=== PATIENT | female | born 1950 | race Caucasian/White ===

== ENCOUNTER 2017-02-21 11:23 | Emergency (ER) | payer MEDICARE ==
[2017-02-21 11:29] VITALS: BP 145/68
[2017-02-21] MEDS ORDERED: IPRATROPIUM/ALBUTEROL 0.5-2.5 MG/3 ML AMPUL NEB ONE (12:21)
[2017-02-21] MEDS ORDERED: GUAIFENESIN/D-METHORPHAN (200-20 MG) SYRUP 10 ML PO ONE (12:21)
--- NOTE | 2017-02-21 12:22 | ER Document Report ---
ED Flu Like - General Chief Complaint: Flu Symptoms Stated Complaint: DIFFICULTY BREATHING,COUGH Time Seen by Provider: 02/21/17 12:06 Mode of Arrival: Ambulatory Information source: Patient Notes: Patient is a 67-year-old female who presents to the ER today for flu That was diagnosed 4 days ago. Patient states that her shortness of breath and cough just seems to be getting worse. She went to the urgent care who sent her here for chest x-ray and because she got lightheaded when they Made her breathe deeply to listen to her lungs. She denies any nausea, vomiting or diarrhea. She admits to body aches and chills but denies true fever that she is noticed. TRAVEL OUTSIDE OF THE [place] IN LAST 30 DAYS: No - Related Data Allergies/Adverse Reactions: No Known Allergies Allergy (Verified 02/21/17 11:23) Past Medical History - General Information source: Patient - Social History Smoking Status: Never Smoker Chew tobacco use (# tins/day): No Frequency of alcohol use: None Drug Abuse: None Family History: Reviewed & Not Pertinent Patient has suicidal ideation: No Patient has homicidal ideation: No Renal/ Medical History: Denies: Hx Peritoneal Dialysis Review of Systems - Review of Systems Constitutional: See HPI EENT: See HPI Cardiovascular: No symptoms reported Respiratory: See HPI Gastrointestinal: No symptoms reported Genitourinary: No symptoms reported Female Genitourinary: No symptoms reported Musculoskeletal: No symptoms reported Skin: No symptoms reported Hematologic/Lymphatic: No symptoms reported Neurological/Psychological: No symptoms reported Physical Exam - Vital signs Vitals: Temp Pulse Resp BP Pulse Ox 98.5 F 86 20 145/68 H 94 02/21/17 11:28 02/21/17 11:28 02/21/17 11:28 02/21/17 11:28 02/21/17 11:28 - Notes Notes: PHYSICAL EXAMINATION: GENERAL: Mildly ill-appearing, but in no acute distress. HEAD: Atraumatic, normocephalic. EYES: Pupils equal round and reactive to light, extraocular movements intact, sclera anicteric, conjunctiva are normal. ENT: ear canals without erythema or foreign body, TMs pearly purcell with good bony landmarks, nares patent, oropharynx erythematous without exudates. Moist mucous membranes. NECK: Normal range of motion, supple without lymphadenopathy LUNGS: cough, mild expiratory wheezes, no rales or rhonchi. HEART: Regular rate and rhythm without murmurs ABDOMEN: Soft, no tenderness. No guarding, no rebound BACK: no vertebral tenderness, normal ROM GI/: no CVA tenderness EXTREMITIES: Normal range of motion, no pitting edema. No cyanosis. NEUROLOGICAL: Cranial nerves grossly intact. Normal sensory/motor exams. PSYCH: Normal mood, normal affect. SKIN: Warm, Dry, normal turgor, no rashes or lesions noted Course - Re-evaluation Re-evalutation: 02/21/17 14:22 chest x-ray negative for any acute pathology such as pneumonia, etc. today. Patient will be Given inhaler as she does feel better after DuoNeb here in the emergency department. Patient's lungs are clear after one breathing treatment here. At this point I did advise patient that the flu can last 10-14 days and that it is viral, but there is no sign of pneumonia today. I will send her home with some good cough medication and an inhaler from the emergency department. - Vital Signs Vital signs: Temp Pulse Resp BP Pulse Ox 98.5 F 86 20 145/68 H 94 02/21/17 11:28 02/21/17 11:28 02/21/17 11:28 02/21/17 11:28 02/21/17 11:28 Discharge - Discharge Clinical Impression: Flu, Shortness of breath Condition: Stable Disposition: HOME, SELF-CARE Instructions: Influenza ([facility]) [id number] Additional Instructions: The flu is viral and usually resolves after 10-14 days. Return immediately for any new or worsening symptoms. Follow up with primary care provider, call tomorrow to make followup appointment. Prescriptions: Hydrocodone Bit/Homatropine [Hycodan Syrup 5-1.5 mg/5 ml Ud Cup] 5 ml PO Q4HP PRN #120 ml PRN Reason:
--- NOTE | 2017-02-21 13:22 | RADIOLOGY REPORT (SQ) ---
EXAM DESCRIPTION: CHEST PA/LAT COMPLETED DATE/TIME: 02/21/2017 1:11 pm REASON FOR STUDY: sob COMPARISON: None. EXAM PARAMETERS: NUMBER OF VIEWS: two views TECHNIQUE: Digital Frontal and Lateral radiographic views of the chest acquired. RADIATION DOSE: NA LIMITATIONS: none FINDINGS: LUNGS AND PLEURA: No opacities, masses or pneumothorax. No pleural effusion. MEDIASTINUM AND HILAR STRUCTURES: No masses or contour abnormalities. HEART AND VASCULAR STRUCTURES: Heart normal size. No evidence for failure. BONES: No acute findings. HARDWARE: None in the chest. OTHER: No other significant finding. IMPRESSION: NO SIGNIFICANT RADIOGRAPHIC FINDING IN THE CHEST. TECHNICAL DOCUMENTATION: JOB ID: [id number] [employer]- All Rights Reserved
[2017-02-21] MEDS ORDERED: ALBUTEROL SULFATE HFA (90 MCG/PUFF) 8 GM MDI (1 MDI/ER DISP) IH PRN (13:30)
== END 2017-02-21 13:46 | disposition home or self-care (01) ==
LOC: ER 11:23
DX: J11.1 Influenza due to unidentified influenza virus with other respiratory manifestations (principal); R06.02 Shortness of breath; R05 Cough; R68.83 Chills (without fever)
CPT/HCPCS: 94640; 99283; 71020; A9270 ×2; J3490; J7620

== ENCOUNTER → 2020-02-13 | Outpatient (CLI) | payer MEDICARE ==
--- NOTE | 2020-02-13 16:02 | RADIOLOGY REPORT (SQ) ---
EXAM DESCRIPTION: FOOT RIGHT COMPLETE IMAGES COMPLETED DATE/TIME: 02/13/2020 3:36 pm REASON FOR STUDY: (M84.374D)STRESS FRACTURE, RIGHT FOOT, SUBS FOR FX W ROUTN HEAL M84.374D STRESS F RACTURE, RIGHT FOOT, SUBS FOR FX W ROUTN HE Q72.819 CONGENITAL SHORTENING OF UNSPECIFIED LOWER LIMB COMPARISON: None. NUMBER OF VIEWS: Two views. TECHNIQUE: AP and lateral weight-bearing views of the right foot were obtained. LIMITATIONS: None. FINDINGS: MINERALIZATION: Normal. BONES: No acute fracture or dislocation. 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 The normal tars ometatarsal alignment is preserved. There are enthesophytes at the calcaneal insertion of the planta r fashion Achilles tendon. SOFT TISSUES: No soft tissue swelling or radiopaque foreign body. OTHER: No other abnormality. IMPRESSION: 1. 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 2. Enthesophytes at the calcaneal insertion of the plantar fashion Achilles tendon. TECHNICAL DOCUMENTATION: JOB ID: [id number] 2010 [employer]- All Rights Reserved Reading location - IP/workstation name: [email or web address]
--- NOTE | 2020-02-13 16:53 | RADIOLOGY REPORT (SQ) ---
EXAM DESCRIPTION: CT BONE LENGTH IMAGES COMPLETED DATE/TIME: 02/13/2020 3:44 pm REASON FOR STUDY: (Q72.819)CONGENITAL SHORTENING OF UNSPECIFIED LOWER LIMB M84.374D STRESS FRACTURE , RIGHT FOOT, SUBS FOR FX Patricia GIPSONN AGATHA Q72.819 CONGENITAL SHORTENING OF UNSPECIFIED LOWER LIMB COMPARISON: None. TECHNIQUE: CT scanogram of the bilateral lower extremities is performed including pelvis to ankles. Measurements of femur, tibia, and entire lower extremities performed by the radiologist and saved to PACS. All CT scanners at this facility use dose modulation, iterative reconstruction, and/or weight based d osing when appropriate to reduce radiation dose to as low as reasonably achievable (ALARA). [facility]: Dose Right [facility]: CareDose [facility]: Dose Right [facility]: Teradose 4D [facility]: [employer] RADIATION DOSE: mGy. LIMITATIONS: None. FINDINGS: RIGHT: FEMUR: 41.8 cm. TIBIA: 33.7 cm. TOTAL RIGHT LOWER EXTREMITY LENGTH (INCLUDES THE KNEE JOINT SPACE): 74.6 cm. LEFT: FEMUR: 41.6 cm. TIBIA: 33.4 cm. TOTAL LEFT LOWER EXTREMITY LENGTH (INCLUDES THE KNEE JOINT SPACE): 74.4 cm. IMPRESSION: LEG LENGTH MEASUREMENTS DETAILED ABOVE. TECHNICAL DOCUMENTATION: JOB ID: [id number] Quality ID # [id number]: Final reports with documentation of one or more dose reduction techniques (e.g., Au tomated exposure control, adjustment of the mA and/or kV according to patient size, use of iterative reconstruction technique) 2010 [employer]- All Rights Reserved Reading location - IP/workstation name: [email or web address]
== END ==
LOC: RAD 15:06
PROVIDERS: ATTEND Podiatrist Foot & Ankle Surgery
DX: M84.374D Stress fracture, right foot, subsequent encounter for fracture with routine healing (principal); Q72.819 Congenital shortening of unspecified lower limb
CPT/HCPCS: 77073